=== PATIENT | female | born 2000 | race Caucasian/White ===

== ENCOUNTER 2020-04-05 15:42 | Emergency (ER) | payer MEDICAID ==
[~2020-04-05] VITALS: Ht 157.5 cm; Wt 55.5 kg
[2020-04-05] MEDS ORDERED: DICY20 PO (15:54)
[2020-04-05] MEDS ORDERED: DICY10 PO (15:56)
[2020-04-05] MEDS ORDERED: SODIUM CHLORIDE 0.9% 250 ML IRRIG SOLUTION BOTTLE IRRIG ONE (17:15)
[2020-04-05] MEDS ORDERED: PERTUSS(ACELL),DIPH,TET VAC/PF 0.5 ML VIAL IM ONE (17:15)
[2020-04-05 18:21] VITALS: BP 122/72
== END 2020-04-05 18:23 | disposition home or self-care (01) ==
LOC: EMS 15:45
DX: S61.213A Laceration without foreign body of left middle finger without damage to nail, initial encounter (principal); S60.411A Abrasion of left index finger, initial encounter; Z79.899 Other long term (current) drug therapy; W45.8XXA Other foreign body or object entering through skin, initial encounter; Y93.89 Activity, other specified; Y92.89 Other specified places as the place of occurrence of the external cause; Y99.8 Other external cause status
CPT/HCPCS: 12001; 90471; 90715